=== PATIENT | male | born 1945 | race Two or more races ===

== ENCOUNTER 2019-04-08 16:15 | Emergency (ER) | payer MEDICARE, MEDICAID ==
[~2019-04-08] VITALS: Ht 167.6 cm; Wt 59.4 kg
[2019-04-08 16:15] VITALS: BP 148/68
--- NOTE | 2019-04-08 16:15 | NUR ---
PT TAKEN TO BED 10.
--- NOTE | 2019-04-08 16:24 | NUR ---
DR. MISHRA BEDSIDE EVALUATING PT
--- NOTE | 2019-04-08 16:39 | NUR ---
PT DOREENA FROM [facility] C/O RIGHT SIDED FACIAL CELLULITIS AND PRIMARY DOCTOR NOTED PURULENT DRAINAGE FROM RIGHT EAR, PT IS NON-VERBAL. PATIENT'S PAIN OF 0/10 AT THIS TIME ON FLACC SCALE; VSS; PATIENT POSITIONED FOR COMFORT; HOB ELEVATED; BEDRAILS UP X2; BED DOWN. ER MD MADE AWARE OF PT STATUS. PT IS ON MONITOR.
--- NOTE | 2019-04-08 16:52 | NUR ---
PT TAKEN TO CT VIA [facility]
--- NOTE | 2019-04-08 17:04 | NUR ---
PT BACK FROM CT VIA [facility]
--- NOTE | 2019-04-08 17:53 | NUR ---
PT IS RESTING IN BED WITH EYES OPEN. VSS.
[2019-04-08] MEDS ORDERED: cefTRIAXone 1,000 MG in LIDOCAINE MPF 1% - 5 mL VIAL 2.1 ML IM ONE (18:50)
--- NOTE | 2019-04-08 19:17 | NUR ---
Pt report given to JUNIOR Curtis. Transfer of care at this time. Awaiting transpotation to pick pt up.
--- NOTE | 2019-04-08 20:05 | NUR ---
PT HAS EYES OPEN, DENIES PAIN, VSS. NO ACUTE DISTRESS NOTED. WILL CONTINUE TO MONITOR
--- NOTE | 2019-04-08 20:26 | NUR ---
[facility]. GAVE UPDATE ON PT STATUS, PT TO BE D/C'D BACK TO FACILITY, SAME ROOM 607B. ETA FOR [facility] @ 0200. D/C INSTRUCTIONS GIVEN, WITH RX. VSS.
--- NOTE | 2019-04-09 | NUR ---
PT HAS EYES CLOSED, DENIES PAIN, VSS. NO ACUTE DISTRESS NOTED. WILL CONTINUE TO MONITOR
--- NOTE | 2019-04-09 02:15 | NUR ---
PT HAS EYES CLOSED; AROUSABLE. VSS. AWAITING TRANSPORT. WILL CONTINUE TO OBSERVE.
--- NOTE | 2019-04-09 05:00 | NUR ---
Patient discharged with v/s stable. Written and verbal after care instructions given and explained. Patient alert, oriented and verbalized understanding of instructions. Ambulance Transport with to care home. All questions addressed prior to discharge. ID band removed. Patient advised to follow up with PMD. Rx of KEFLEX, OFLOXACIN given. Patient educated on indication of medication including possible reaction and side effects. Opportunity to ask questions provided and answered.
[2019-04-09 05:04] VITALS: BP 134/67
== END 2019-04-09 05:00 ==
LOC: MED 16:15
DX: H60.91 Unspecified otitis externa, right ear (principal); F03.90 Unspecified dementia, unspecified severity, without behavioral disturbance, psychotic disturbance, mood disturbance, and anxiety
CPT/HCPCS: 70486; 96372; 99284; J0696; J2001